=== PATIENT | female | born 1975 | race Caucasian/White ===

== ENCOUNTER 2016-12-25 22:05 | Emergency (ER) | payer OTHER ==
[2016-12-25 23:24] LABS: % BASOPHILS 0.6 % (0.0-2.0); % EOSINOPHILS 4.2 % (0.0-5.0); % LYMPHOCYTES 32.7 % (20.0-50.0); % MONOCYTES 8.6 % (2.0-10.0); % NEUTROPHILS 53.9 % (40.0-80.0); HEMATOCRIT 37.9 % (35.0-45.0); HEMOGLOBIN 13.3 gm/dL (11.7-15.5); MEAN CELL VOLUME 84.5 fl (81-100); MEAN CORPUSCULAR HEMOGLOBIN 29.6 pg (27.0-31.0); MEAN PLATELET VOLUME 8.1 fl; NEUTROPHILE ABSOLUTE 4.5 Th/cmm (1.8-8.0); PLATELET COUNT 318 Th/cmm (150-400); RED BLOOD COUNT 4.48 Mil/cmm (3.80-5.10); RED CELL DISTRIBUTION WIDTH 12.6 % (11.5-20.0); WHITE BLOOD COUNT 8.4 Th/cmm (4.8-10.8)
[2016-12-25 23:32] LABS: CHOLESTEROL 226 mg/dL (<200); TRIGLYCERIDES 207 mg/dL (<150)
[2016-12-25 23:34] LABS: ALB/GLOB RATIO 1.2 (1.0-1.8); ALKALINE PHOSPHATASE 69 U/L (34-104); ANION GAP 10.2 (7.0-16.0); BILIRUBIN,TOTAL 0.3 mg/dL (0.3-1.0); BUN - UREA NITROGEN 15 mg/dL (7-25); BUN/CREATININE RATIO 18.8; CALCIUM SERUM 9.7 mg/dL (8.6-10.3); CARBON DIOXIDE 24.8 mEq/L (21.0-31.0); CHLORIDE 104 mEq/L (98-107); CREATININE - SERUM 0.8 mg/dL (0.6-1.2); GLUCOSE 102 mg/dL (70-105); INR 0.92 (0.5-1.4); PROTHROMBIN TIME (TEST) 9.6 SECONDS (9.5-11.5); SGOT 20 U/L (13-39); SGPT/ALT 18 U/L (7-52); SODIUM SERUM 135 mEq/L (136-145)
--- NOTE | 2016-12-25 23:42 | ED Physician Chart ---
Chief Complaint/HPI - Patient Information Date Seen:: 12/25/16 Time Seen:: 22:40 Chief Complaint:: left shoulder pain History of Present Illness:: THIS IS A 41 YO FEMALE WITH LEFT SHOULDER PAIN THAT STARTED EARLY TODAY AND IS 8 /10 WITH RADIATION DOWN THE LEFT UPPER ARM. SHE ALSO STATES THAT SHE ALSO HAS SOME DISCOMFORT AT THE BASE OF THE POSTERIOR NECK THE ALSO GOS TO THE LEFT SHOULDER. THE PATIENT ALSO DENIES SOB, HEART PAIN AND DENIES COUGHING. SHE DENIES RECENT TRAUMA AND RECENT HEAVY LIFTING. SHE DENIES HAVING ANY FEVER, NAUSEA AND VOMITING. Allergies:: Allergies Allergy/AdvReac Type Severity Reaction Status Date / Time Penicillins [PCN] Allergy Verified 12/25/16 22:36 Vitals:: Vital Signs - 8 hr 12/25/16 22:15 Temp 97.8 F HR 80 RR 18 BP 150/103 O2 Sat % 95 Historian:: Patient Review:: Nurse's Note Reviewed Review of Systems - Review of Systems General/Constitutional: No fever, No chills, No weight loss, No weakness, No diaphoresis, No edema, No loss of appetite Skin: No skin lesions, No rash, No bruising Head: No headache, No light-headedness Eyes: No loss of vision, No pain, No diplopia ENT: No earache, No nasal drainage, No sore throat, No tinnitus Neck: No neck pain, No swelling, No thyromegaly, No stiffness, No mass noted Cardio Vascular: No chest pain, No palpitations, No PND, No orthopnea, No edema Pulmonary: No SOB, No cough, No sputum, No wheezing GI: No nausea, No vomiting, No diarrhea, No pain, No melena, No hematochezia, No constipation, No hematemesis G/U: No dysuria, No frequency, No hematuria Musculoskeletal: No bone or joint pain, No back pain, No muscle pain, Other ( LEFT SHOULDER PAIN) Endocrine: No polyuria, No polydipsia Psychiatric: No prior psych history, No depression, No anxiety, No suicidal ideation Hematopoietic: No bruising, No lymphadenopathy Allergic/Immuno: No urticaria, No angioedema Neurological: No syncope, No focal symptoms, No weakness, No paresthesia, No headache, No seizure, No dizziness, No confusion, No vertigo Past Medical History - Past Medical History Obtainable: Yes Past Medical History: Arthritis Family History: None Social History: Non Smoker, No Alcohol, No Drug Use Surgical History: other (RIGHT ARM SURGERY) Psychiatricy History: None Medication: Reviewed Family Medical History - Family Member Mother History Unknown: Yes Hx Family Hypertension: Yes Physical Exam - Physical Examination General/Constitutional: Awake, Well-developed, well-nourished, Alert, No distress, GCS 15, Non-toxic appearing, Ambulatory Head: Atraumatic Eyes: Lids, conjuctiva normal, PERRL, EOMI Skin: Nl inspection, No rash, No skin lesions, No ecchymosis, Well hydrated, No lymphadenopathy ENMT: External ears, nose nl, Nasal exam nl, Lips, teeth, gums nl Neck: Nontender, Full ROM w/o pain, No JVD, No nuchal rigidity, No bruit, No mass, No stridor Respiratory: Nl effort/Exclusion, Clear to Auscultation, No Wheeze/Rhonchi/Rales Cardio Vascular: RRR, No murmur, gallop, rubs, NL S1 S2 GI: No tenderness/rebounding/guarding, No organomegaly, No hernia, Normal BS's, Nondistended, No mass/bruits, No McBurney tenderness : No CVA tenderness Extremities: No tenderness or effusion, Full ROM, normal strength in all extremities, No edema, Normal digits & nails Other Extremities comments:: LEFT POSTERIOR SHOULDER TENDERNESS WITH NORMAL ROM. Neuro/Psych: Alert/oriented, DTR's symmetric, Normal sensory exam, Normal motor strength, Judgement/insight normal, Mood normal, Normal gait, No focal deficits Misc: normal gait, Normal back, No paraspinal tenderness Labs/Radiology/EKG Results - Lab Results Results: Laboratory Tests 12/25/16 12/25/16 12/25/16 22:53 22:53 22:53 WBC 8.4 RBC 4.48 Hgb 13.3 Hct 37.9 MCV 84.5 MCH 29.6 MCHC Differential 35.0 RDW 12.6 Plt Count 318 MPV 8.1 Neutrophils % 53.9 Lymphocytes % 32.7 Monocytes % 8.6 Eosinophils % 4.2 Basophils % 0.6 PT 9.6 INR 0.92 Sodium Potassium Chloride Carbon Dioxide Anion Gap BUN Creatinine Est GFR ( Amer) Est GFR (Non-Af Amer) BUN/Creatinine Ratio Glucose Calcium Total Bilirubin AST ALT Alkaline Phosphatase Troponin I Total Protein Albumin Globulin Albumin/Globulin Ratio Triglycerides 207 H Cholesterol 226 H LDL Cholesterol Direct 172 HDL Cholesterol 42 12/25/16 12/25/16 22:53 22:53 WBC RBC Hgb Hct MCV MCH MCHC Differential RDW Plt Count MPV Neutrophils % Lymphocytes % Monocytes % Eosinophils % Basophils % PT INR Sodium 135 L Potassium 4.0 Chloride 104 Carbon Dioxide 24.8 Anion Gap 10.2 BUN 15 Creatinine 0.8 Est GFR ( Amer) > 60.0 Est GFR (Non-Af Amer) > 60.0 BUN/Creatinine Ratio 18.8 Glucose 102 Calcium 9.7 Total Bilirubin 0.3 AST 20 ALT 18 Alkaline Phosphatase 69 Troponin I < 0.01 L Total Protein 7.4 Albumin 4.0 Globulin 3.4 Albumin/Globulin Ratio 1.2 Triglycerides Cholesterol LDL Cholesterol Direct HDL Cholesterol - Radiology Results Results: CERVICAL CT SCAN = C4-C5 DISC DISEASE CHEST X-RAY = NAD - EKG Interpretations EKG Time:: 23:32 Rhythm: sinus [place]: right Rate: 69 Comments:: no pacs, pvcs or st depression or elevation. ED Septic Shock - . Is Septic Shock (SBP<90, OR Lactate>4 mmol\L) present?: No - <6hrs of presentation: Vital Signs: Vital Signs - 8 hr 12/25/16 22:15 Temp 97.8 F HR 80 RR 18 BP 150/103 O2 Sat % 95 Reassessment (Disposition) - Reassessment Reassessment Condition:: Improved - Diagnosis Diagnosis:: LEFT SHOULDER PAIN CERVICAL SPINE DISC DISEASE - Aftercare/Follow up Instructions Aftercare/Follow-Up Instructions:: Counseled pt regarding lab results/diagnosis & need follow up, Refer to Discharge Instructions, Counseled pt & family regarding lab results/diagnosis & need follow up - Patient Disposition Discharge/Transfer:: Home Condition at Disposition:: Improved ED Discharge Plan - Patient Disposition Admit/Discharge/Transfer: PT DISCHARGED HOME Condition at Disposition: Improved
[2016-12-26 01:11] LABS: AMPHETAMINE URINE NEGATIVE (NEGATIVE); BARBITURATES URINE NEGATIVE (NEGATIVE); METHADONE URINE NEGATIVE (NEGATIVE)
[2016-12-26 01:19] LABS: URINE BACTERIA FEW /hpf (NONE SEEN); URINE BILIRUBIN NEGATIVE (NEGATIVE); URINE BLOOD NEGATIVE (NEGATIVE); URINE COLOR YELLOW; URINE EPITHELIAL CELLS FEW /lpf (FEW); URINE GLUCOSE (UA) NEGATIVE (NEGATIVE); URINE KETONE NEGATIVE (NEGATIVE); URINE PROTEIN NEGATIVE (NEGATIVE); URINE RBC 0-2 /hpf (0-5); URINE UROBILINOGEN 0.2 E.U./dL (0.2 - 1.0); URINE WBC 0-2 /hpf (0-5)
[2016-12-26] MEDS ORDERED: HYDROmorphone 1 mg/mL 1mL Syr ONE (01:38)
[2016-12-26] MEDS: HYDROmorphone 1 mg/mL 1mL Syr IVP STA (01:47)
--- NOTE | 2016-12-26 08:49 | Diagnostic Imaging Report ---
Portable chest x-ray History: Pain Allowing for portable technique the heart size is normal. No focal pulmonary parenchymal processes. No hilar or mediastinal abnormalities. Impression: No acute abnormalities.
--- NOTE | 2016-12-26 09:32 | Diagnostic Imaging Report ---
CT scan cervical spine HISTORY: Pain, trauma Total DLP equals 602 CTDI equals 20.9 Axial sections were obtained to the cervical spine. Additional sagittal and coronal reformatted images are provided. Air is straightening of the cervical lordosis that may be associated with spasm. Hypertrophic spur formation noted about the endplates of C5-6. Spur formation results in a mild to moderate extradural indentation on the anterior spinal canal at this level. No acute abnormalities. No fractures. The prevertebral soft tissues appear normal. IMPRESSION: 1. No acute bony abnormalities 2. Degenerative changes C5-6
--- NOTE | 2016-12-26 09:34 | Diagnostic Imaging Report ---
Abdominal ultrasound (limited, gallbladder) HISTORY: Pain The exam of the liver demonstrates an increase in parenchymal echogenicity. The finding may be associated with fatty infiltration and should be correlated with liver function tests. No intraluminal abnormality seen in the gallbladder. Specifically, no calculi identified. No biliary dilatation (common bile duct equals 0.25 cm). The pancreas, kidneys, and left abdomen were not evaluated at this time. IMPRESSION: 1. Limited exam due to the gallbladder region 2. No definite evidence of cholelithiasis 3. Hepatic parenchymal changes that may be associated with fatty infiltration and should be correlated with liver function tests
== END 2016-12-26 02:00 | disposition home or self-care (01) ==
LOC: ER 22:05
DX: M25.512 Pain in left shoulder (principal); M48.9 Spondylopathy, unspecified; Z88.0 Allergy status to penicillin
CPT/HCPCS: 36415-UA; 71010-TC; 72125-TC; 76705-TC; 80053-TC; 80061-TC; 81001-TC; 81025-TC; 84443-TC; 84484-TC; 85025-TC; 85610-TC; 86592-TC; 93005; 96374; J1170; J1885; J2405; J2930

== ENCOUNTER 2017-04-12 20:38 | Emergency (ER) | payer OTHER ==
[2017-04-12] MEDS ORDERED: Sulfamethoxazole/TMP 800/160mg Tab PO ONE (21:07)
--- NOTE | 2017-04-12 21:13 | ED Physician Chart ---
Chief Complaint/HPI - Patient Information Date Seen:: 04/12/17 Time Seen:: 20:50 Chief Complaint:: redness right upper arm History of Present Illness:: Patient noted the redness medial right upper arm 2 days. The redness has improved since last night. No chills or fever Allergies:: Allergies Allergy/AdvReac Type Severity Reaction Status Date / Time Penicillins [PCN] Allergy Verified 12/25/16 22:36 Vitals:: Vital Signs - 8 hr 04/12/17 20:50 Temp 98.3 F HR 72 RR 18 BP 146/99 O2 Sat % 98 Historian:: Patient Review:: Nurse's Note Reviewed Review of Systems - Review of Systems General/Constitutional: No fever, No chills Skin: Skin lesions Head: No headache Eyes: No loss of vision ENT: No earache Neck: No neck pain Cardio Vascular: No chest pain Pulmonary: No SOB GI: No nausea, No vomiting G/U: No dysuria, No frequency Musculoskeletal: No bone or joint pain, No muscle pain Endocrine: No polyuria Psychiatric: No prior psych history, No depression, No anxiety Hematopoietic: No bruising Allergic/Immuno: No urticaria Neurological: No syncope, No focal symptoms Past Medical History - Past Medical History Past Medical History: No significant medical hx, Other (patient had a severe allergic reaction to penicillin at age 10 which included skin desquamation but patient apparently takes amoxicillin without a problem; celiac disease) Family History: HTN Social History: Non Smoker, No Alcohol Surgical History: other (right ovary; epicondylectomy 2001) Psychiatricy History: None Medication: None Family Medical History - Family Member Mother History Unknown: Yes Hx Family Hypertension: Yes Physical Exam - Physical Examination General/Constitutional: Well-developed, well-nourished, No distress Head: Atraumatic Eyes: Lids, conjuctiva normal, PERRL Other Skin comments:: Distal posterior right upper arm: 10 cm of pale erythema with 1 cm area of darker erythema and slight induration . ENMT: External ears, nose nl, TM canals nl, Nasal exam nl, Lips, teeth, gums nl Neck: No nuchal rigidity Respiratory: Nl effort/Exclusion, Clear to Auscultation Cardio Vascular: RRR, No murmur, gallop, rubs GI: No tenderness/rebounding/guarding : No CVA tenderness Extremities: No tenderness or effusion Neuro/Psych: Alert/oriented Assessment - Assessment General Assessment: Patient has a local allergic reaction or a cellulitis ED Septic Shock - . Is Septic Shock (SBP<90, OR Lactate>4 mmol\L) present?: No - <6hrs of presentation: Vital Signs: Vital Signs - 8 hr 04/12/17 20:50 Temp 98.3 F HR 72 RR 18 BP 146/99 O2 Sat % 98 Reassessment (Disposition) - Reassessment Reassessment Condition:: Unchanged - Diagnosis Diagnosis:: Cellulitis right upper arm - Aftercare/Follow up Instructions Medication Prescribed:: Bactrim DS No. 20 one twice a day - Patient Disposition Discharge/Transfer:: Home Condition at Disposition:: Stable, Unchanged ED Discharge Plan - Patient Disposition Instructions: Cellulitis
[2017-04-12] MEDS ORDERED: Sulfamethoxazole/TMP 800/160mg Tab ONE (21:19)
== END 2017-04-12 21:12 | disposition home or self-care (01) ==
LOC: ER 20:38
DX: L03.113 Cellulitis of right upper limb (principal); Z88.0 Allergy status to penicillin
CPT/HCPCS: Z7502